=== PATIENT | female | born 1995 | race Caucasian/White ===

== ENCOUNTER 2019-04-27 10:35 | Emergency (ER) | payer BC, OTHER ==
[~2019-04-27] VITALS: Ht 157.5 cm; Wt 59.0 kg
[2019-04-27] MEDS ORDERED: MOBIC7.5 MG PO (12:58)
[2019-04-27] MEDS ORDERED: LIDOCAINE PAIN1 EACH TRANSDERM (13:00)
[2019-04-27 13:06] VITALS: BP 134/88
== END 2019-04-27 13:07 | disposition home or self-care (01) ==
LOC: ER 10:35
DX: S16.1XXA Strain of muscle, fascia and tendon at neck level, initial encounter (principal); M54.5 Low back pain; F17.210 Nicotine dependence, cigarettes, uncomplicated; V89.2XXA Person injured in unspecified motor-vehicle accident, traffic, initial encounter; Y93.89 Activity, other specified; Y92.415 Exit ramp or entrance ramp of street or highway as the place of occurrence of the external cause; Y99.8 Other external cause status